=== PATIENT | female | born 1980 | race Caucasian/White ===

== ENCOUNTER 2021-04-13 11:25 | Emergency (ER) | payer MEDICARE, OTHER ==
[~2021-04-13] VITALS: Ht 170.2 cm; Wt 83.4 kg
[2021-04-13] MEDS ORDERED: EFFE150C2 PO (11:35)
[2021-04-13] MEDS ORDERED: GABA-283 PO (11:35)
[2021-04-13] MEDS ORDERED: HYDR-4517 PO (11:35)
[2021-04-13] MEDS ORDERED: PRED10PA PO (11:35)
[2021-04-13] MEDS ORDERED: HYDROMORPHONE HCL 0.5 MG/ 0.5 ML SYRINGE (J1170 PER 1) IM ONE (13:20)
[2021-04-13] MEDS ORDERED: predniSONE 20 MG TAB PO ONE (13:20)
[2021-04-13] MEDS ORDERED: PRED10TA2 PO (13:24)
[2021-04-13] MEDS ORDERED: PERC5TAB12 PO (13:24)
[2021-04-13 13:25] VITALS: BP 186/107
== END 2021-04-13 13:49 | disposition home or self-care (01) ==
LOC: M ED 11:25
DX: M10.9 Gout, unspecified (principal); Z79.899 Other long term (current) drug therapy
CPT/HCPCS: 96372; 99282; J1170; J7512